=== PATIENT | male | born 1955 | race Caucasian/White ===

== ENCOUNTER → 2016-12-04 | Outpatient (CLI) | payer BC ==
[~2016-12-04] MED LIST: ANTIDEPRESSANT PO; ASPI81TA28 PO; BP MED PO; CHOLESTEROL MED PO; DULO60CA44 PO; GLUCTAB18 PO; LISI-461 PO; MELO15TA4 PO; MULT-506 PO; OXYC-57 PO; ROSU40TA PO
[2016-12-04 18:38] LABS: BASO % 0.5 %; BASO ABS # 0.04 K/uL (0-0.2); COMPLETE YES; EOS % 0.6 %; HEMATOCRIT 45.2 % (42-52); IG% 0.2 %; LYMPH % 33.8 %; LYMPH ABS # 2.86 K/uL (1.2-3.4); MEAN CELL VOLUME 88.1 fL (80-100); MEAN CORPUSCULAR HEMOGLOBIN 30.6 pg (25-34); MEAN CORPUSCULAR HGB CONC 34.7 g/dl (32-36); MEAN PLATELET VOLUME 9.6 fL (7.4-10.4); MONO % 9.2 %; NEUT % 55.7 %; PLATELET COUNT 398 K/uL (130-400); RED BLOOD COUNT 5.13 M/uL (4.7-6.1); WHITE BLOOD COUNT 8.45 K/uL (4.8-10.8)
[2016-12-04 18:43] LABS: ALT/SGPT 34 U/L (12-78); AST/SGOT 21 U/L (15-37); BLOOD UREA NITROGEN 21 mg/dl (7-18); CARBON DIOXIDE 28 mmol/L (21-32); CHLORIDE 103 mmol/L (98-107); GLUCOSE 86 mg/dl (70-99); POTASSIUM 4.4 mmol/L (3.5-5.1); SODIUM 138 mmol/L (136-145)
[2016-12-04 18:45] LABS: ALB/GLOB RATIO 0.9 (0.9-2); ALKALINE PHOSPHATASE 55 U/L (45-117); CHOLESTEROL 287 mg/dl (0-200); CHOLESTEROL/HDL RATIO 4.7; HDL CHOLESTEROL 61 mg/dl; LDL CHOLESTEROL CALCULATED 193 mg/dl; TRIGLYCERIDES 165 mg/dl (0-150); VERY LOW DENSITY LIPOPROT CALC 33 mg/dl
== END | disposition home or self-care (01) ==
LOC: C.LABSPEC 17:49
PROVIDERS: ATTEND Family Medicine
DX: E78.2 Mixed hyperlipidemia (principal)

== ENCOUNTER → 2017-04-29 | Outpatient (CLI) | payer OTHER, BC ==
[2017-04-29 13:47] LABS: BASO % 0.5 %; BASO ABS # 0.04 K/uL (0-0.2); COMPLETE YES; EOS % 1.3 %; HEMATOCRIT 44.1 % (42-52); IG% 0.2 %; LYMPH % 35.2 %; LYMPH ABS # 3.02 K/uL (1.2-3.4); MEAN CELL VOLUME 91.3 fL (80-100); MEAN CORPUSCULAR HEMOGLOBIN 31.1 pg (25-34); MEAN PLATELET VOLUME 9.7 fL (7.4-10.4); MONO % 11.8 %; PLATELET COUNT 337 K/uL (130-400); RED BLOOD COUNT 4.83 M/uL (4.7-6.1); WHITE BLOOD COUNT 8.57 K/uL (4.8-10.8)
[2017-04-29 14:12] LABS: BLOOD UREA NITROGEN 23 mg/dl (7-18); BUN/CREATININE RATIO 18.9 (10-20); CALCIUM 9.3 mg/dl (8.5-10.1); CARBON DIOXIDE 26 mmol/L (21-32); CHLORIDE 106 mmol/L (98-107); GLUCOSE 89 mg/dl (70-99); POTASSIUM 4.7 mmol/L (3.5-5.1); SODIUM 138 mmol/L (136-145)
== END | disposition home or self-care (01) ==
LOC: C.CPL 12:38
PROVIDERS: ATTEND Orthopaedic Surgery
DX: Z01.810 Encounter for preprocedural cardiovascular examination (principal); Z01.812 Encounter for preprocedural laboratory examination

== ENCOUNTER → 2017-05-07 | Day surgery (SDC) | payer OTHER, BC ==
[2017-05-04 10:34] VITALS: Ht 175.3 cm; Wt 75.0 kg
[~2017-05-07] VITALS: Ht 175.3 cm; Wt 75.0 kg
[~2017-05-07] MED LIST changes: +ATROPINE SULFATE 0.1 MG/ML 5ML SYR IV PRN; +BUPIVACAINE/EPINEPHRINE 0.25% 10 ML VIAL ONE; +CEFAZOLIN 2000 MG/60 ML D5W IV SCH; +DEXAMETHASONE SOD INJ 4 MG/ML VIAL ONE; +EpHEDrine SULFATE INJ 50 MG/ML AMP IV PRN; +FENTANYL CITRATE INJ 50 MCG/1 ML 2 ML VIAL ONE; +LACTATED RINGER'S 1000ML 1,000 ML IV SCH; +LIDOCAINE HCL 2% 2 ML VIAL (20MG/ML) ONE; +MIDAZOLAM HCL 1 MG/ML 2ML VIAL ONE; +ONDANSETRON INJ 2 MG/ML 2 ML VIAL IV PRN; +ONDANSETRON INJ 2 MG/ML 2 ML VIAL ONE; +OXYCODONE/ACETAMINOPHEN 5-325 TAB PO PRN; +PROMETHAZINE HCL INJ 12.5 MG in SODIUM CHLORIDE 0.9% 50ML 50 ML IV PRN; +PROPOFOL IV EMULSION 10 MG/ML 20 ML VIAL IV ONE; +SODIUM CHLORIDE 0.9% 1000ML 1,000 ML IV SCH
--- NOTE | 2017-05-07 08:07 | History & Physical Bridge Note ---
H&P Re-Evaluation Bridge Note: I have examined the patient, reviewed the History & Physical and in the interval since the performance of the History & Physical I have noted the following changes of clinical significance: No changes noted
--- NOTE | 2017-05-07 09:58 | Discharge Instructions-SurgCtr ---
Discharge Instructions Date of Service May 07, 2017. Visit Reason for Visit: Rupture Of Triceps Tendon Left Elbow Discharge Discharge Diagnosis / Problem: SAME ABOVE Discharge Goals Goal(s): Decrease discomfort, Improve function Medications Stopped Medications Name(s): MOBIC/ASA- LAST DOSE THURSDAY Restart Stopped Medication(s): JANUARY RESTART 05/07/2017 UNLESS YOU WERE PRESCRIBED TORADOL IF GIVEN TORADOL DO NOT TAKE ANY ANTI-INFLAMMATORIES UNTIL DONE WITH TORADOL Activity Recommendations Activity Limitations: as noted below Lifting Limitations: until after follow-up appointment Exercise/Sports Limitations: until after follow-up appointment Anesthesia . Post Anesthesia Instructions: If you have had General Anesthesia or IV Sedation: * Do not drive today. * Resume driving when surgeon permits. * Do not make important decisions or sign legal documents today. * Call surgeon for: 1. Temperature elevations greater than 101 degrees F. 2. Uncontrollable pain. 3. Excessive bleeding. 4. Persistent nausea and vomiting. 5. Medication intolerance (nausea, vomiting or rash). * For nausea and vomiting use only clear liquids such as: tea, soda, bouillon until nausea subsides, then gradually increase diet as tolerated. * If you have any concerns or questions, call your surgeon's office. If physician is unavailable and it is an emergency, call 911 or go to the nearest emergency room. . Diet Recommendations Home Diet: no limitations Fluid Restriction: None Procedures Procedures Performed: Left Elbow Triceps Repair Pending Studies Studies pending at discharge: no Work Instructions Return To Work: after follow-up Lifting Limitations: NO LIFTING WITH LEFT ARM Medical Emergencies . Who to Call and When: Medical Emergencies: If at any time you feel your situation is an emergency, please call 911 immediately. . Non-Emergent Contact Non-Emergency issues call your: Primary Care Provider Call Non-Emergent contact if: you have a fever, temperature is above 101.5 . . "Provider Documentation" section prepared by Andrea Black. .
[2017-05-07] MEDS: HYDROmorphone INJ 1 MG/ML SYR IV PRN ×4 (10:08→10:26)
[2017-05-07] MEDS: FENTANYL CITRATE INJ 50 MCG/1 ML 2 ML VIAL IV PRN ×2 (10:40→10:46)
[2017-05-07 11:20] VITALS: TEMP 36.4
[2017-05-07 11:39] VITALS: BP 153/79; PULSE 83; O2SAT 94
--- NOTE | 2017-05-07 11:46 | Anesthesiology Progress Note ---
Anesthesia Post Op Note Date & Time May 07, 2017 at 11:45 Vital Signs Pain Intensity: 5.0 Vital Signs Past 12 Hours Date Time Temp Pulse Resp B/P (MAP) Pulse Ox O2 Delivery O2 Flow Rate FiO2 05/07/17 11:39 83 153/79 (103) 94 Room Air 05/07/17 11:20 36.4 155/102 (119) 97 Room Air 05/07/17 10:57 94 15 92 05/07/17 10:57 36.9 94 13 169/105 96 Room Air 05/07/17 10:57 96 15 05/07/17 10:56 165/109 05/07/17 10:55 177/110 05/07/17 10:54 169/115 05/07/17 10:52 82 10 99 05/07/17 10:52 84 10 05/07/17 10:51 174/104 05/07/17 10:47 80 13 05/07/17 10:47 82 13 100 05/07/17 10:45 160/102 05/07/17 10:42 75 9 100 05/07/17 10:42 77 9 05/07/17 10:40 176/102 05/07/17 10:37 85 11 05/07/17 10:37 86 11 100 05/07/17 10:36 150/103 05/07/17 10:32 88 12 100 05/07/17 10:32 88 12 05/07/17 10:31 155/111 05/07/17 10:31 174/103 05/07/17 10:28 164/106 05/07/17 10:27 86 7 05/07/17 10:27 81 7 100 05/07/17 10:25 176/100 05/07/17 10:22 87 11 100 05/07/17 10:22 88 11 05/07/17 10:21 165/97 05/07/17 10:17 89 18 05/07/17 10:17 92 18 100 05/07/17 10:16 168/109 05/07/17 10:12 86 12 05/07/17 10:12 84 12 100 05/07/17 10:10 156/109 05/07/17 10:07 83 12 05/07/17 10:07 85 12 99 05/07/17 10:06 160/115 05/07/17 10:02 86 12 99 05/07/17 10:02 83 12 05/07/17 10:01 133/100 05/07/17 09:57 93 10 05/07/17 09:57 92 10 100 05/07/17 09:56 143/88 05/07/17 09:53 151/99 05/07/17 09:52 36.4 81 12 151/99 98 Diffusion Mask 6 05/07/17 07:11 36.5 87 18 150/96 (114) 97 Room Air Notes Mental Status: alert / awake / arousable, participated in evaluation Pt Amnestic to Procedure: Yes Nausea / Vomiting: adequately controlled Pain: adequately controlled Airway Patency, RR, SpO2: stable & adequate BP & HR: stable & adequate Hydration State: stable & adequate Anesthetic Complications: no major complications apparent
--- NOTE | 2017-05-07 15:29 | [facility] Post Operative Brief Note ---
Immediate Operative Summary Operative Date May 07, 2017. Pre-Operative Diagnosis Rupture of Triceps Tendon Left Elbow Post-Operative Diagnosis same Procedure(s) Performed Left Elbow Triceps Repair Surgeon Dr. Tatiana Yip Gamma Facilities Operator Surgeon(s) Lauro Black PA-C Estimated Blood Loss 5CC Findings as above Specimens none Complication(s) None Disposition Recovery Room / PACU
--- NOTE | 2017-05-07 18:09 | OPERATIVE REPORT ---
DATE OF OPERATION: 05/07/2017 PREOPERATIVE DIAGNOSIS: Triceps tendon rupture of the left elbow. POSTOPERATIVE DIAGNOSIS: Same. PROCEDURE: Open left triceps tendon repair. SURGEON: Dr. Primo Yip. WOOD SASH AND FRAME CARPENTER: Lauro Black PA-C, whose assistance was necessary for positioning of the arm and helping with retraction. ANESTHESIA: General. COMPLICATIONS: None. CONDITION: Stable to PACU. INDICATIONS: Gurvinder is a pleasant 62-year-old male who injured his left elbow a month ago at work. He was carrying a heavy sheet metal with another coworker when he injured his elbow. MRI showed a rupture of the triceps tendon and after failing conservative treatment and with persistent weakness, he elected to proceed with distal triceps tendon reattachment. DESCRIPTION OF PROCEDURE: On 05/07/2017, he arrived at [facility] for the above procedure. He was seen in the preoperative holding area and the operative extremity was identified and signed. He was given preoperative antibiotics and taken back to the operating room, laid on the table in supine position and put under general anesthesia. The left elbow was then prepped and draped in sterile fashion. Time-out was done and the patient and operative extremity was properly identified. A lateral curvilinear incision was made over the olecranon. Dissection was taken down through the fascia and the triceps was exposed. There was only a tear of the long head of the triceps tendon and medial head was intact on the olecranon. The olecranon bone was then prepared with a rongeur to get good-bleeding bone. The long head of the triceps was then fixed with basically an Arthrex SpeedBridge configuration. The stay sutures from the proximal anchors were brought through the tendon and the proximal row was tied down. The FiberWire sutures and the FiberTapes were then all brought down to 1 of 2 distal SwiveLock suture anchors. Four 4.75 mm BioComposite SwiveLock suture anchors were used during the case. This gave a nice anatomic repair. I was able to flex his elbow to about 110 degrees after the repair before there was a lot of tension on the repair. Care was taken throughout the case not to disrupt the ulnar nerve. The wound was then irrigated and the skin was closed with 3-0 Vicryl and a 3-0 nylon suture in a mattress fashion. He was then placed in a soft dressing and an arm sling. He was then extubated, transferred to a [facility] and taken to the postanesthesia care unit in stable condition. He tolerated the procedure well. I attest to the content of the Intraoperative Record and any orders documented therein. Any exception s are noted below.
== END | disposition home or self-care (01) ==
LOC: X.SURG 07:01
PROVIDERS: ATTEND Orthopaedic Surgery
DX: S46.312A Strain of muscle, fascia and tendon of triceps, left arm, initial encounter (principal); X58.XXXA Exposure to other specified factors, initial encounter; I10 Essential (primary) hypertension

== ENCOUNTER → 2017-12-18 | Outpatient (CLI) | payer BC ==
[~2017-12-18] MED LIST changes: -ANTIDEPRESSANT PO; -ATROPINE SULFATE 0.1 MG/ML 5ML SYR IV PRN; -BP MED PO; -BUPIVACAINE/EPINEPHRINE 0.25% 10 ML VIAL ONE; -CEFAZOLIN 2000 MG/60 ML D5W IV SCH; -CHOLESTEROL MED PO; -DEXAMETHASONE SOD INJ 4 MG/ML VIAL ONE; -EpHEDrine SULFATE INJ 50 MG/ML AMP IV PRN; -FENTANYL CITRATE INJ 50 MCG/1 ML 2 ML VIAL ONE; -LACTATED RINGER'S 1000ML 1,000 ML IV SCH; -LIDOCAINE HCL 2% 2 ML VIAL (20MG/ML) ONE; +MELO-83 PO; -MELO15TA4 PO; -MIDAZOLAM HCL 1 MG/ML 2ML VIAL ONE; -ONDANSETRON INJ 2 MG/ML 2 ML VIAL IV PRN; -ONDANSETRON INJ 2 MG/ML 2 ML VIAL ONE; -OXYC-57 PO; -OXYCODONE/ACETAMINOPHEN 5-325 TAB PO PRN; -PROMETHAZINE HCL INJ 12.5 MG in SODIUM CHLORIDE 0.9% 50ML 50 ML IV PRN; -PROPOFOL IV EMULSION 10 MG/ML 20 ML VIAL IV ONE; -SODIUM CHLORIDE 0.9% 1000ML 1,000 ML IV SCH
[2017-12-18 13:06] LABS: BASO % 0.4 %; BASO ABS # 0.03 K/uL (0-0.2); EOS % 0.7 %; EOS ABS # 0.06 K/uL (0-0.5); HEMATOCRIT 46.9 % (42-52); HEMOGLOBIN 16.1 g/dL (14.0-18.0); IG# 0.02 K/uL (0.00-0.02); LYMPH % 35.1 %; LYMPH ABS # 2.93 K/uL (1.2-3.4); MEAN CELL VOLUME 89.7 fL (80-100); MEAN CORPUSCULAR HEMOGLOBIN 30.8 pg (25-34); MEAN CORPUSCULAR HGB CONC 34.3 g/dl (32-36); MEAN PLATELET VOLUME 9.7 fL (7.4-10.4); MONO % 9.4 %; MONO ABS # 0.78 K/uL (0.11-0.59); NEUT % 54.2 %; NEUT ABS # 4.52 K/uL (1.4-6.5); PLATELET COUNT 397 K/uL (130-400); RED CELL DISTRIBUTION WIDTH CV 12.5 % (11.5-14.5); RED CELL DISTRIBUTION WIDTH SD 40.7 fL (36.4-46.3); WHITE BLOOD COUNT 8.34 K/uL (4.8-10.8)
[2017-12-18 13:40] LABS: ALBUMIN 3.7 gm/dl (3.4-5.0); BLOOD UREA NITROGEN 23 mg/dl (7-18); CARBON DIOXIDE 25 mmol/L (21-32); CREATININE 1.21 mg/dl (0.60-1.40); GLUCOSE 107 mg/dl (70-99); POTASSIUM 4.4 mmol/L (3.5-5.1); SODIUM 136 mmol/L (136-145)
[2017-12-18 13:44] LABS: ALKALINE PHOSPHATASE 54 U/L (45-117); ALT/SGPT 43 U/L (12-78); AST/SGOT 26 U/L (15-37); CHOLESTEROL 161 mg/dl (0-200); LDL CHOLESTEROL CALCULATED 66 mg/dl; TOTAL PROTEIN 7.4 gm/dl (6.4-8.2)
== END | disposition home or self-care (01) ==
LOC: C.LABSPEC 12:21
PROVIDERS: ATTEND Family Medicine
DX: E78.2 Mixed hyperlipidemia (principal); F41.1 Generalized anxiety disorder; I10 Essential (primary) hypertension